=== PATIENT | female | born 1970 | race African-American/Black ===

== ENCOUNTER 2022-01-05 12:10 | Emergency (ER) | payer OTHER, SELFPAY ==
--- NOTE | ~2022-01-05 | XR_ITS ---
EXAMINATION: XR wrist RT min 3V DATE: 01/05/2022 12:53 INDICATION: Right wrist injury and pain. TECHNIQUE: 4 views of right wrist were obtained. COMPARISON: None. FINDINGS: Bone alignment is normal. No fracture. Joint spaces are well maintained. IMPRESSION: 1. Normal right wrist. Reviewed, dictated and finalized at location A. IMPRESSION: 1. Normal right wrist.
--- NOTE | ~2022-01-05 | XR_ITS ---
EXAMINATION: XR forearm RT 2V DATE: 01/05/2022 12:53 INDICATION: Right forearm injury and pain. TECHNIQUE: 2 views of right forearm were obtained. COMPARISON: None. FINDINGS: Bone alignment is normal. No fracture. Joint spaces are well maintained. There is no elbow joint effusion. IMPRESSION: 1. Normal right forearm. Reviewed, dictated and finalized at location A. IMPRESSION: 1. Normal right forearm.
[2022-01-05 12:18] VITALS: BP 118/74; PULSE 73; RESP 16; TEMP 36.2; O2SAT 100
--- NOTE | 2022-01-05 12:44 | ED.GENADULT ---
HPI - General Adult General Chief complaint: Extremity Injury, Upper Stated complaint: wrist pain Time Seen by Provider: 01/05/22 12:25 Source: RN notes reviewed History of Present Illness HPI narrative: Patient presents to the emergency department from home for right wrist pain. Patient states approximately 1015 this morning at work she is getting some baby wipes down off of the top shelf and several of the boxes fell down coming down on her right wrist she states has had pain in the right wrist radiating right forearm since that time she she is not taking thing for the pain she denies any numbness or tingling in the extremities denies any other trauma or injury Related Data Allergies Allergy/AdvReac Type Severity Reaction Status Date / Time aspirin Allergy Anaphylaxis Verified 01/05/22 12:23 Review of Systems Review of Systems: Gen.: Denies fevers or chills Musculoskeletal: See HPI Neuro: Denies numbness, tingling, weakness Skin: Denies rash Endo: Denies DM PMFSH Past Medical History Medical History (Updated 01/05/22 @ 13:05 by Jose Angela DO) Patient denies significant medical history Social History Social History (Updated 01/05/22 @ 12:46 by Jose Angela DO) Smoking status: Never smoker Exam Narrative: APPEARANCE: No acute distress, nontoxic, resting in bed Eyes: EOMI HEENT: Normocephalic, atraumatic, RESPIRATORY: No respiratory distress MUSCULOSKELETAl: Tender to palpation over the right medial and lateral dorsal wrist no swelling or ecchymosis pain with flexion of the wrist mild tenderness over the right lateral forearm no tenderness of the right elbow or shoulder with full range of motion of both no tenderness of the right hand full flexion-extension of all 5 MCP and IP joints, radial pulse 2+ neurovascular intact NEURO: Awake and alert. Following commands, speech normal, no focal deficits SKIN:: Warm, dry. Normal Color no rash or lesions Course Course Emergency Course: Discussed with patient results of workup and diagnosis. Discussed need for follow-up with primary care, proper use of medication, and reasons to return to the emergency department. Patient understands and agrees to current treatment plan Vital Signs Vital signs: Vital Signs Temperature 97.2 F L 01/05/22 12:18 Pulse Rate 73 01/05/22 12:18 Respiratory Rate 16 01/05/22 12:18 Blood Pressure 118/74 01/05/22 12:18 Pulse Oximetry 100 01/05/22 12:18 Oxygen Delivery Room Air 01/05/22 12:18 Temperature 97.2 F L 01/05/22 12:18 Pulse Rate 73 01/05/22 12:18 Respiratory Rate 16 01/05/22 12:18 Blood Pressure 118/74 01/05/22 12:18 Pulse Oximetry 100 01/05/22 12:18 Oxygen Delivery Room Air 01/05/22 12:18 Medical Decision Making Vital Signs Vital Signs: Vital Signs Temperature 97.2 F L 01/05/22 12:18 Pulse Rate 73 01/05/22 12:18 Respiratory Rate 16 01/05/22 12:18 Blood Pressure 118/74 01/05/22 12:18 Pulse Oximetry 100 01/05/22 12:18 Oxygen Delivery Room Air 01/05/22 12:18 Temperature 97.2 F L 01/05/22 12:18 Pulse Rate 73 01/05/22 12:18 Respiratory Rate 16 01/05/22 12:18 Blood Pressure 118/74 01/05/22 12:18 Pulse Oximetry 100 01/05/22 12:18 Oxygen Delivery Room Air 01/05/22 12:18 Imaging Data Radiologist's impression: ITS Impressions Wrist X-Ray 01/05/22 12:54 IMPRESSION: 1. Normal right wrist. Forearm X-Ray 01/05/22 12:55 IMPRESSION: 1. Normal right forearm. Discharge Plan Discharge Clinical Impression: Right wrist sprain Patient Disposition: Home, Self-Care Condition: Stable Instructions: Antibiotic Form, Wrist Injury (ED) Additional Instructions: Return for increasing pain numbness or tingling in extremities or any other symptoms of concern. Obtain a cock up wrist splint from your local drugstore and wear for the next 5 days Prescriptions: New ibuprofen [IBU] 600 mg tablet 600 mg
[2022-01-05] MEDS: ACETAMINOPHEN 500 MG TABLET 1000 MG PO (12:51)
== END 2022-01-05 13:23 | disposition home or self-care (01) ==
PROVIDERS: Emergency Provider Emergency Medicine
DX: S63.501A Unspecified sprain of right wrist, initial encounter (principal); W20.8XXA Other cause of strike by thrown, projected or falling object, initial encounter
CPT/HCPCS: 73090; 73110; 99283; A9270